=== PATIENT | female | born 1960 | race Caucasian/White ===

== ENCOUNTER → 2020-09-05 | Outpatient (CLI) | payer OTHER | END | disposition home or self-care (01) | LOC: STAR 15:34 | PROVIDERS: ATTEND Anesthesiology | DX: Z20.828 Contact with and (suspected) exposure to other viral communicable diseases (principal) | CPT/HCPCS: 87635 ==

== ENCOUNTER 2020-09-09 13:43 | Day surgery (SDC) | payer OTHER ==
[~2020-09-09] VITALS: Ht 175.3 cm; Wt 64.3 kg
[~2020-09-09 13:43] MED LIST: EPINEPHRINE 1 MG/ML, 1ML ONE; LIDOCAINE/PF 1%, 30ML ONE; ROPIvacaine/PF 0.5%, 30 ML ONE
[2020-09-09] MEDS ORDERED: CHLORHEXIDINE 15 ML UDC ONE (14:07)
[2020-09-09 14:28] VITALS: BP 111/76
[2020-09-09] MEDS ORDERED: FENTANYL PF 100 MCG/2ML ONE ×2 (14:44→15:36)
[2020-09-09] MEDS ORDERED: MIDAZOLAM 1 MG/ML, 2ML ONE (14:44)
[2020-09-09] MEDS ORDERED: PROPOFOL 10 MG/ML, 20ML ONE (14:55)
[2020-09-09] MEDS ORDERED: CEFAZOLIN 1,000 MG ONE (14:55)
[2020-09-09] MEDS ORDERED: MEPERIDINE/PF 25MG/0.5ML IVPush PRN (15:00)
[2020-09-09] MEDS ORDERED: HYDROmorphone 1 MG/ML, 1ML INJ IVPush PRN (15:00)
[2020-09-09] MEDS ORDERED: LACTATED RINGERS 1,000 ML IV SCH (15:00)
[2020-09-09] MEDS ORDERED: HYDROcodone/APAP 7.5-325MG/15ML UDC PO PRN (15:00)
[2020-09-09] MEDS ORDERED: OXYcodone 5 MG/5 ML ORAL.SOL UDC PO PRN (15:00)
[2020-09-09] MEDS ORDERED: PROMETHAZINE 25 MG/ML, 1ML IVPush PRN (15:00)
[2020-09-09] MEDS ORDERED: KETOROLAC 30 MG/1 ML IVPush PRN (15:00)
[2020-09-09] MEDS ORDERED: HYDROcodone/APAP 7.5-325MG/15ML UDC ONE (15:37)
[2020-09-09] MEDS: FENTANYL PF 100 MCG/2ML IV PRN ×2 (15:59→16:07)
== END 2020-09-09 17:40 | disposition home or self-care (01) ==
LOC: OR 13:43 → OUT 17:40
PROVIDERS: ATTEND Orthopaedic Surgery
DX: S83.242A Other tear of medial meniscus, current injury, left knee, initial encounter (principal); M65.862 Other synovitis and tenosynovitis, left lower leg; M94.262 Chondromalacia, left knee; M17.12 Unilateral primary osteoarthritis, left knee; Z79.899 Other long term (current) drug therapy; X58.XXXA Exposure to other specified factors, initial encounter; Y93.89 Activity, other specified; Y92.89 Other specified places as the place of occurrence of the external cause; Y99.8 Other external cause status
CPT/HCPCS: 29881; J0171; J0690; J2250; J2704; J2795; J3010; J7120